=== PATIENT | female | born 1990 | race American Indian/Alaskan Native ===

== ENCOUNTER 2020-05-12 16:56 | Outpatient (CLI) | payer MEDICAID, MEDICARE ==
[2020-05-12 17:20] VITALS: BP 117/60
[2020-05-12] MEDS ORDERED: LACTATED RINGERS 1,000 ML IV ONE (18:44)
[2020-05-12 18:49] LABS: Bilirubin,Urine NEG (Negative); Blood,Urine NEG (Negative); Color,Urine Yellow (Yellow); Mucus,Urine FEW /HPF; Protein,Urine <15 mg/dL mg/dL (Negative); RBC,Urine < 1.0 /HPF (0.0-6.0); Urobilinogen,Urine < 2.0 mg/dL (<2.0)
== END 2020-05-12 19:50 | disposition home or self-care (01) ==
LOC: TRG 16:56 → APU 16:58 → TRG 19:50
PROVIDERS: ATTEND Obstetrics & Gynecology
DX: Z34.83 Encounter for supervision of other normal pregnancy, third trimester (principal); Z3A.31 31 weeks gestation of pregnancy
CPT/HCPCS: 59025; 81001